=== PATIENT | male | born 1955 | race Caucasian/White ===

== ENCOUNTER 2016-12-08 10:30 | Emergency (ER) | payer OTHER ==
[~2016-12-08] VITALS: Ht 175.3 cm; Wt 88.5 kg
[2016-12-08] MEDS ORDERED: PROZAC20 MG PO (10:51)
[2016-12-08] MEDS ORDERED: ATENOLOL 100MG100 MG PO (10:52)
[2016-12-08] MEDS ORDERED: NORCO 10-325 T1 EACH PO (10:52)
[2016-12-08] MEDS ORDERED: NORCO 10-325 T1 EAC1 PO (11:02)
[2016-12-08 11:22] VITALS: BP 170/96
== END 2016-12-08 11:25 | disposition home or self-care (01) ==
LOC: ER 10:30
DX: G89.29 Other chronic pain (principal); I10 Essential (primary) hypertension; F41.9 Anxiety disorder, unspecified; M25.569 Pain in unspecified knee

== ENCOUNTER 2016-12-12 12:40 | Emergency (ER) | payer OTHER ==
[~2016-12-12] VITALS: Ht 177.8 cm; Wt 88.5 kg
[~2016-12-12 12:40] MED LIST: ATENOLOL 100MG100 MG PO; NORCO 10-325 T1 EAC1 PO; NORCO 10-325 T1 EACH PO; PROZAC20 MG PO
[2016-12-12 13:27] VITALS: BP 167/88
== END 2016-12-12 13:30 | disposition home or self-care (01) ==
LOC: ER 12:40
DX: G89.29 Other chronic pain (principal); I10 Essential (primary) hypertension; F41.9 Anxiety disorder, unspecified; M25.569 Pain in unspecified knee

== ENCOUNTER 2017-03-22 12:24 | Emergency (ER) | payer OTHER ==
[~2017-03-22] VITALS: Ht 177.8 cm; Wt 86.2 kg
[2017-03-22] MEDS ORDERED: ATENOLOL 100MG100 MG PO (13:42)
[2017-03-22] MEDS ORDERED: NORCO 5-325 TA1 EACH PO (13:42)
== END 2017-03-22 14:56 | disposition home or self-care (01) ==
LOC: ER 12:24
DX: M54.5 Low back pain (principal); I10 Essential (primary) hypertension; M79.604 Pain in right leg; F41.9 Anxiety disorder, unspecified; Z91.14 Patient's other noncompliance with medication regimen; G89.29 Other chronic pain

== ENCOUNTER 2017-03-26 12:38 | Emergency (ER) | payer OTHER ==
[~2017-03-26] VITALS: Ht 177.8 cm; Wt 95.3 kg
[~2017-03-26 12:38] MED LIST changes: +NORCO 5-325 TA1 EACH PO
[2017-03-26] MEDS ORDERED: NORCO 10-325 T1 EACH PO (12:57)
[2017-03-26] MEDS ORDERED: PROZAC20 MG PO (12:57)
== END 2017-03-26 13:16 | disposition home or self-care (01) ==
LOC: ER 12:38
DX: Z76.0 Encounter for issue of repeat prescription (principal); G89.29 Other chronic pain; I10 Essential (primary) hypertension; F41.9 Anxiety disorder, unspecified; M25.569 Pain in unspecified knee

== ENCOUNTER 2017-04-15 09:34 | Emergency (ER) | payer OTHER ==
[~2017-04-15] VITALS: Ht 175.3 cm; Wt 90.7 kg
[2017-04-15] MEDS ORDERED: MOBIC15 MG PO (10:48)
== END 2017-04-15 10:51 | disposition home or self-care (01) ==
LOC: ER 09:34
DX: G89.29 Other chronic pain (principal); I10 Essential (primary) hypertension; F41.9 Anxiety disorder, unspecified